=== PATIENT | male | born 2000 | race Asian ===

== ENCOUNTER 2023-10-30 13:07 | Inpatient (IN) | payer BC, OTHER ==
[2023-10-30] MEDS ORDERED: Morphine 2 MG/ML VIAL SLOW IVP PRN (14:47)
[2023-10-30] MEDS ORDERED: hydrALAZINE 20 MG/ML VIAL SLOW IVP PRN (14:47)
[2023-10-30] MEDS ORDERED: Ipratropium/Albuterol 3 ML NEB NEB PRN (14:47)
[2023-10-30] MEDS ORDERED: Cyclobenzaprine 10 MG TAB PO PRN (14:51)
[2023-10-30] MEDS ORDERED: Morphine 4 MG/ML VIAL ONE (15:20)
[2023-10-30 16:15] LABS: #Eosinphils 0.1 thou/uL (0.0-0.7); #Monocytes 1.1 thou/uL (0.11-0.59); #Neutrophils 12.2 thou/uL (1.40-6.50); %Basophils 0.2 % (0.0-1.0); %Eosinophils 0.4 % (0.0-10.0); %Lymphocytes 8.8 % (21.0-51.0); %Monocytes 7.3 % (0.0-10.0); Hematocrit 49.3 % (42.0-52.0); Hemoglobin 17.5 g/dL (14.0-18.0); Mean Corpuscular HGB CONC 35.5 g/dL (32.0-36.0); Mean Corpuscular Hemoglobin 31.3 pg (27.0-31.0); Mean Corpuscular Volume 88.2 fl (78.0-98.0); Mean Platelet Volume 8.7 fL (7.4-10.4); Platelet Count 277 10x3/uL (130-400); RBC Distribution Width 11.7 % (11.5-14.5); Red Blood Cell (RBC) Count 5.59 mill/uL (4.70-6.10); White Blood Cell (WBC) Count 14.6 10x3/uL (4.8-10.8)
[2023-10-30 16:18] VITALS: BMI 28.8
[2023-10-30 16:35] LABS: Prothrombin Time 12.7 sec (12.0-14.7)
[2023-10-30] MEDS ORDERED: Acetaminophen 500 MG TAB ONE (16:41)
[2023-10-30] MEDS: Sodium Chloride 0.9% 1,000 ML IV SCH (16:47)
[2023-10-30] MEDS: Acetaminophen 500 MG TAB PO SCH (16:47)
[2023-10-30 16:50] LABS: Anion Gap 10 mmol/L (10-20); BUN (Urea Nitrogen) 11 mg/dL (8.9-20.6); Calc. Creatinine Clearance 138 mL/min (70-130); Calcium 9.5 mg/dL (7.8-10.44); Carbon Dioxide 26 mmol/L (22-29); Chloride 105 mmol/L (98-107); Estimated GFR 110; Glucose 106 mg/dL (70-105); Potassium 3.6 mmol/L (3.5-5.1); Sodium 137 mmol/L (136-145)
[2023-10-30] MEDS: traMADol HCl 50 MG TAB PO SCH (18:42)
[2023-10-31 05:20] LABS: #Eosinphils 0.2 thou/uL (0.0-0.7); #Monocytes 0.8 thou/uL (0.11-0.59); #Neutrophils 4.8 thou/uL (1.40-6.50); %Basophils 0.5 % (0.0-1.0); %Eosinophils 2.6 % (0.0-10.0); %Lymphocytes 26.6 % (21.0-51.0); %Monocytes 9.5 % (0.0-10.0); %Neutrophils 60.5 % (42.0-75.0); Hematocrit 45.5 % (42.0-52.0); Hemoglobin 15.6 g/dL (14.0-18.0); Mean Corpuscular HGB CONC 34.3 g/dL (32.0-36.0); Mean Corpuscular Hemoglobin 30.3 pg (27.0-31.0); Mean Corpuscular Volume 88.3 fl (78.0-98.0); Mean Platelet Volume 8.8 fL (7.4-10.4); Platelet Count 232 10x3/uL (130-400); RBC Distribution Width 11.7 % (11.5-14.5); Red Blood Cell (RBC) Count 5.15 mill/uL (4.70-6.10)
[2023-10-31] MEDS ORDERED: PROPOFOL 20 ML ONE (09:07)
[2023-10-31] MEDS ORDERED: Sodium Chloride 0.9% 0 ML ONE (09:14)
[2023-10-31] MEDS ORDERED: CEFAZOLIN 2 GM VIAL ONE (09:14)
[2023-10-31] MEDS ORDERED: fentaNYL PF 100 MCG/2 ML SYRINGE ONE (10:28)
[2023-10-31] MEDS ORDERED: Lidocaine 1% PF 5 ML VIAL ONE (10:31)
[2023-10-31] MEDS ORDERED: EPINEPHrine 1 MG/ML VIAL ONE (10:55)
[2023-10-31] MEDS ORDERED: Bupivacaine 0.25% HCL 30 ML VIAL ONE (10:55)
[2023-10-31] MEDS ORDERED: Vancomycin 1 GM VIAL ONE (10:56)
[2023-10-31] MEDS ORDERED: Ondansetron HCl/PF 4 MG/2 ML Vial IVP PRN (11:25)
[2023-10-31] MEDS ORDERED: Promethazine HCl 25 MG/ML VIAL IM PRN (11:25)
[2023-10-31] MEDS ORDERED: HYDROmorphone 2 MG/ML VIAL SLOW IVP PRN (11:25)
[2023-10-31] MEDS ORDERED: PACU-Morphine 4MG/ML VIAL SLOW IVP PRN (11:25)
[2023-10-31] MEDS ORDERED: HYDROmorphone 2 MG/ML VIAL ONE (11:39)
[2023-10-31] MEDS ORDERED: Acetaminophen 325 MG TAB PO PRN (11:52)
[2023-10-31] MEDS ORDERED: HYDROcodone/Acetaminophen 5/325 mg Tablet PO PRN ×2 (11:52)
[2023-10-31] MEDS ORDERED: Morphine 4 MG/ML VIAL SLOW IVP PRN (11:52)
[2023-10-31] MEDS ORDERED: Communication Order-Pharmacy FS SCH (12:00)
[2023-10-31] MEDS: Ketorolac Tromethamine 30 MG (1 mL) VIAL IVP SCH (13:40)
[2023-10-31] MEDS ORDERED: CEFAZOLIN 2 GM in Sodium Chloride 0.9% 100 ML IVPB SCH (14:00)
[2023-10-31] MEDS: CEFAZOLIN 2 GM in Sodium Chloride 0.9% 100 ML IVPB SCH (17:51)
[2023-10-31] MEDS: Ondansetron PF 4 MG/2 ML Vial IVP PRN (18:43)
[2023-11-01] MEDS: Enoxaparin 40 MG (0.4 mL) SYRINGE SC SCH (09:22)
[2023-11-01] MEDS: traMADol HCl 50 MG TAB PO PRN (09:27)
[2023-11-01 17:10] VITALS: BP 118/70; TEMP 98.2
== END 2023-11-01 18:00 | disposition home or self-care (01) | DRG 494 ==
LOC: ERS 13:07 → ERHOLD 14:51 → SURG B 18:12
PROVIDERS: ADMIT Specialist; ATTEND Specialist
PROC: 0QSH04Z Reposition Left Tibia with Internal Fixation Device, Open Approach (ICD-10-PCS; principal; 2023-10-30)
PROC: 3E033XZ Introduction of Vasopressor into Peripheral Vein, Percutaneous Approach (ICD-10-PCS; 2023-10-30)
DX: S82.202A Unspecified fracture of shaft of left tibia, initial encounter for closed fracture (principal); V29.498A Other motorcycle driver injured in collision with other motor vehicles in traffic accident, initial encounter; G89.11 Acute pain due to trauma
CPT/HCPCS: 27752; 36415; 71045; 72170; 80048; 85025; 85610; 85730; 86850; 86900; 86901; 96374; C1713; C1874; G0390; J0171; J0665; J1170; J1650; J1885; J2270; J2405; J2704; J3370; J3490; J7050